=== PATIENT | female | born 1990 | race Caucasian/White ===

== ENCOUNTER → 2017-01-10 | Outpatient (CLI) | payer OTHER | LOC: MRI SRH 15:00 | DX: R20.2 Paresthesia of skin (principal); Z53.8 Procedure and treatment not carried out for other reasons ==

== ENCOUNTER 2017-01-27 13:09 | Outpatient (CLI) | payer OTHER | END 2017-01-27 23:00 | LOC: MRI SRH 13:09 | DX: R20.0 Anesthesia of skin (principal) ==